=== PATIENT | male | born 1990 | race Caucasian/White ===

== ENCOUNTER 2019-10-06 13:19 | Emergency (ER) | payer SELFPAY ==
[~2019-10-06] VITALS: Ht 172.7 cm; Wt 72.6 kg
[2019-10-06 14:10] VITALS: BP 151/100
[2019-10-06] MEDS ORDERED: IBUPROFEN 600 MG TABLET PO ONE ×2 (14:30→14:49)
== END 2019-10-06 14:50 | disposition home or self-care (01) ==
LOC: ER 13:19
DX: H61.22 Impacted cerumen, left ear (principal); J02.8 Acute pharyngitis due to other specified organisms; K12.0 Recurrent oral aphthae; F17.200 Nicotine dependence, unspecified, uncomplicated; Z60.2 Problems related to living alone